=== PATIENT | female | born 1990 | race Caucasian/White ===

== ENCOUNTER 2018-11-04 07:22 | Emergency (ER) | payer OTHER, MEDICAID ==
[2018-11-04 08:06] LABS: URINE BLOOD (Dip) POC 1+ (NEGATIVE); URINE GLUCOSE (Dip) POC Negative (NEGATIVE); URINE KETONES (Dip) POC Negative (NEGATIVE); URINE LEUKOCYTE EST (Dip) POC 1+ (NEGATIVE); URINE NITRITE (Dip) POC Negative (NEGATIVE); URINE TOTAL PROTEIN POC Negative (NEGATIVE)
== END 2018-11-04 09:13 | disposition home or self-care (01) ==
LOC: FTE 07:22
DX: O36.8121 Decreased fetal movements, second trimester, fetus 1 (principal); Z3A.15 15 weeks gestation of pregnancy
CPT/HCPCS: 76805; 81003; 99284-25

== ENCOUNTER 2019-02-05 20:52 | Outpatient (CLI) | payer OTHER ==
[2019-02-05 21:32] LABS: ADD UMIC YES; UR ASCORBIC ACID NEGATIVE (NEGATIVE); UR BILIRUBIN (Dip) NEGATIVE (NEGATIVE); UR BLOOD (Dip) 1+ mg/dL (NEGATIVE); UR CLARITY CLEAR (CLEAR); UR COLOR YELLOW (YELLOW); UR GLUCOSE (Dip) NEGATIVE (NEGATIVE); UR KETONES (Dip) NEGATIVE (NEGATIVE); UR LEUKOCYTE ESTERASE (Dip) NEGATIVE Leu/ul (NEGATIVE); UR NITRITE (Dip) NEGATIVE (NEGATIVE); UR RBC 2 /HPF (0-5); UR SPECIFIC GRAVITY (Dip) 1.016 (1.003-1.030); UR TOTAL PROTEIN (Dip) NEGATIVE (NEGATIVE); UR UROBILINOGEN (Dip) NEGATIVE (NEGATIVE); UR WBC 0 /HPF (0-5)
== END 2019-02-05 23:19 | disposition home or self-care (01) ==
LOC: OBT 20:52 → L-D 20:54 → OBT 23:19
DX: O47.03 False labor before 37 completed weeks of gestation, third trimester (principal); O26.893 Other specified pregnancy related conditions, third trimester; R10.2 Pelvic and perineal pain; Z3A.29 29 weeks gestation of pregnancy
CPT/HCPCS: 76815; 76817; 81001; 87086

== ENCOUNTER 2019-02-13 09:07 | Outpatient (CLI) | payer OTHER ==
[2019-02-13 10:50] LABS: ADD UMIC YES; UR ASCORBIC ACID NEGATIVE (NEGATIVE); UR BACTERIA FEW /HPF (NONE SEEN); UR BILIRUBIN (Dip) NEGATIVE (NEGATIVE); UR BLOOD (Dip) 1+ mg/dL (NEGATIVE); UR CLARITY SLIGHTLY CLOUDY (CLEAR); UR COLOR YELLOW (YELLOW); UR GLUCOSE (Dip) NEGATIVE (NEGATIVE); UR KETONES (Dip) NEGATIVE (NEGATIVE); UR LEUKOCYTE ESTERASE (Dip) TRACE Leu/ul (NEGATIVE); UR MUCUS FEW /HPF (NONE SEEN); UR NITRITE (Dip) NEGATIVE (NEGATIVE); UR RBC 2 /HPF (0-5); UR SPECIFIC GRAVITY (Dip) 1.021 (1.003-1.030); UR SQUAMOUS EPITHELIAL CELL FEW /HPF (FEW); UR TOTAL PROTEIN (Dip) NEGATIVE (NEGATIVE); UR UROBILINOGEN (Dip) NEGATIVE (NEGATIVE); UR WBC 4 /HPF (0-5)
== END 2019-02-13 11:50 | disposition home or self-care (01) ==
LOC: OBT 09:07 → L-D 09:07 → OBT 11:50
DX: O26.893 Other specified pregnancy related conditions, third trimester (principal); Z3A.30 30 weeks gestation of pregnancy; R10.2 Pelvic and perineal pain
CPT/HCPCS: 76818; 81001; 99211

== ENCOUNTER 2019-04-25 08:31 | Inpatient (IN) | payer OTHER ==
[2019-04-25] MEDS ORDERED: CARBOPROST 250 MCG INJ IM (09:30)
[2019-04-25] MEDS ORDERED: LIDOCAINE 1% (MPF) 30 ML INJ INJ (09:30)
[2019-04-25] MEDS ORDERED: OXYTOCIN 30 UNITS/LR 500 ML IV (09:30)
[2019-04-25] MEDS ORDERED: BUTORPHANOL 2 MG INJ IV (09:30)
[2019-04-25] MEDS ORDERED: METHYLERGONOVINE 0.2 MG INJ IM (09:30)
[2019-04-25] MEDS ORDERED: MISOPROSTOL 200 MCG TAB PR (09:30)
[2019-04-25] MEDS ORDERED: IBUPROFEN 600 MG TAB PO (09:30)
[2019-04-25] MEDS: LACTATED RINGER'S 1,000 ML IV ×3 (09:37→22:48)
[2019-04-25 09:55] LABS: ADD MAN DIFF? NO
[2019-04-25 10:00] LABS: WHITE BLOOD COUNT 9.3 10^3/ul (4.8-10.8)
[2019-04-25 10:00] LABS: BASOPHILS % 0.2 % (0.0-2.0); EOSINOPHILS # 0.1 10^3/ul (0.0-0.5); EOSINOPHILS % 0.8 % (0.0-7.0); HEMATOCRIT 38.1 % (37.0-47.0); HEMOGLOBIN 12.7 g/dl (12.0-16.0); LYMPHOCYTES # 1.8 10^3/ul (0.8-2.9); LYMPHOCYTES % 19.5 % (15.0-51.0); MEAN CORPUSCULAR HEMOGLOBIN 28.4 pg (29.0-33.0); MEAN CORPUSCULAR HGB CONC 33.3 g/dl (32.0-37.0); MEAN CORPUSCULAR VOLUME 85.2 fl (82.0-101.0); MEAN PLATELET VOLUME 10.7 fl (7.4-10.4); MONOCYTE # 0.5 10^3/ul (0.3-0.9); MONOCYTES % 5.7 % (0.0-11.0); NEUTROPHIL # 6.8 10^3/ul (1.6-7.5); NEUTROPHILS % 73.4 % (39.0-77.0); PLATELET COUNT 230 10^3/UL (140-415); RED BLOOD COUNT 4.47 10^6/ul (4.20-5.40); RED CELL DISTRIBUTION WIDTH 13.4 % (11.5-14.5)
[2019-04-25 10:19] LABS: INR 0.99; PROTIME 13.2 Sec (11.9-14.9)
[2019-04-25 10:51] LABS: HEPATITIS B SURFACE ANTIGEN NEGATIVE (NEGATIVE)
[2019-04-25] MEDS: MISOPROSTOL 50 MCG CAPSULE PO ×3 (11:12→19:53)
[2019-04-25 14:57] LABS: RAPID PLASMA REAGIN NONREACTIVE (NR)
[2019-04-26] MEDS: OXYTOCIN 30 UNITS/LR 500 ML IV ×4 (00:56→12:21)
[2019-04-26] MEDS: IBUPROFEN 600 MG TAB PO ×4 (08:28→23:50)
[2019-04-26] MEDS ORDERED: DIPHENHYDRAMINE 25 MG CAP PO (08:30)
[2019-04-26] MEDS ORDERED: morphine 2 MG INJ IV (08:30)
[2019-04-26] MEDS ORDERED: WITCH HAZEL/GLYCERIN PAD PR (08:30)
[2019-04-26] MEDS ORDERED: NACL 0.9% 3 ML SYG IV (08:30)
[2019-04-26] MEDS ORDERED: HYDROCODONE/APAP (5/325) TAB PO (08:30)
[2019-04-26] MEDS ORDERED: ZOLPIDEM 5 MG TAB PO (08:30)
[2019-04-26] MEDS ORDERED: OXYTOCIN 30 UNITS/LR 500 ML IV (08:30)
[2019-04-26] MEDS ORDERED: CARBOPROST 250 MCG INJ IM (08:30)
[2019-04-26] MEDS ORDERED: MISOPROSTOL 200 MCG TAB PR (08:30)
[2019-04-26] MEDS ORDERED: ONDANSETRON 4 MG INJ IV (08:30)
[2019-04-26] MEDS: SENNA/DOCUSATE NA (8.6MG/50MG) TAB PO ×2 (09:00→21:00)
[2019-04-26] MEDS: LANOLIN HPA 1 PKT TOP (22:34)
[2019-04-27] MEDS: IBUPROFEN 600 MG TAB PO ×2 (05:46→12:46)
[2019-04-27] MEDS: SENNA/DOCUSATE NA (8.6MG/50MG) TAB PO (08:42)
[2019-04-27 09:45] LABS: ADD MAN DIFF? NO
[2019-04-27 09:48] LABS: WHITE BLOOD COUNT 11.4 10^3/ul (4.8-10.8)
[2019-04-27 09:48] LABS: BASOPHIL # 0.1 10^3/ul (0.0-0.1); BASOPHILS % 0.5 % (0.0-2.0); EOSINOPHILS # 0.1 10^3/ul (0.0-0.5); EOSINOPHILS % 1.2 % (0.0-7.0); HEMATOCRIT 36.9 % (37.0-47.0); HEMOGLOBIN 12.5 g/dl (12.0-16.0); LYMPHOCYTES # 2.4 10^3/ul (0.8-2.9); MEAN CORPUSCULAR HEMOGLOBIN 28.6 pg (29.0-33.0); MEAN CORPUSCULAR HGB CONC 33.9 g/dl (32.0-37.0); MEAN CORPUSCULAR VOLUME 84.4 fl (82.0-101.0); MEAN PLATELET VOLUME 10.8 fl (7.4-10.4); MONOCYTE # 0.6 10^3/ul (0.3-0.9); MONOCYTES % 5.2 % (0.0-11.0); NEUTROPHIL # 8.2 10^3/ul (1.6-7.5); NEUTROPHILS % 71.7 % (39.0-77.0); PLATELET COUNT 206 10^3/UL (140-415); RED BLOOD COUNT 4.37 10^6/ul (4.20-5.40); RED CELL DISTRIBUTION WIDTH 13.5 % (11.5-14.5)
[2019-04-27] MEDS: DIPHTH/TET/ACEL PERTUSS (ADULT) 0.5 ML VIAL IM* (13:41)
[2019-04-28] MEDS ORDERED: VARICELLA VACCINE LIVE/PF 1,350 UNIT/0.5 ML ML SC* (09:00)
[2019-04-28] MEDS ORDERED: MEASLES,MUMPS,RUBELLA VACCINE INJ SC* (09:00)
== END 2019-04-27 14:25 | disposition home or self-care (01) | DRG 807 ==
LOC: L-D 08:31 → PP1 04-26 07:50
PROVIDERS: Obstetrics & Gynecology
PROC: 4A1HXCZ Monitoring of Products of Conception, Cardiac Rate, External Approach (ICD-10-PCS; 2019-04-25 08:00)
PROC: 3E0P7GC Introduction of Other Therapeutic Substance into Female Reproductive, Via Natural or Artificial Opening (ICD-10-PCS; 2019-04-25 08:00)
DX: O48.0 Post-term pregnancy (principal); Z37.0 Single live birth; Z3A.40 40 weeks gestation of pregnancy; Z23 Encounter for immunization
CPT/HCPCS: 76815; 85025; 85610; 85730; 86592; 86850; 86900; 86901; 87340